=== PATIENT | female | born 1950 | race Caucasian/White ===

== ENCOUNTER 2020-05-21 23:47 | Emergency (ER) | payer OTHER ==
[~2020-05-21] VITALS: Ht 160 cm; Wt 66.7 kg
[2020-05-22] MEDS ORDERED: ONDANSETRON 2MG/ML, 2ML ONE (00:11)
[2020-05-22] MEDS ORDERED: KETOROLAC 30 MG/1 ML ONE (00:11)
--- NOTE | 2020-05-22 00:16 | NUR ---
BIB [facility] FOR C/O RIGHT FLANK PAIN RADIATING INTO RLQ ABD X 2 DAYS; PAIN BECAME WORSE TONIGHT AND PT. REPORTS 1 EPISODE OF EMESIS. IV ESTABLISHED EN ROUTE: 250ML OF NS, 50MCG FENTANLY, AND 4MG ZOFRAN ADMIN BY EMS. PT. REPORTS PAIN MORE TOLERABLE AT 6/10 DOWN FROM 10/10 ON ARRIVAL. HX OF KIDNEY STONES IN THE PAST REQUIRING LITHOTRIPSY FOR 16MM STONE. PT. MEDICATED PER DEC. SPO2 AND B/P MONITORS IN PLACE. AT FOR SUPPORT. DR. FELIX WAS IN TO EVAL PT. AND DISCUSS POC. EKG WAS DONE ON ARRIVAL.
[2020-05-22] MEDS ORDERED: MORPHINE SULFATE 4 MG/ML, 1ML IVPush PRN (00:30)
[2020-05-22] MEDS ORDERED: SODIUM CHLORIDE FLUSH 10ML SYR IVF ONE (00:30)
[2020-05-22] MEDS ORDERED: ONDANSETRON 2MG/ML, 2ML IVPush ONE (00:30)
[2020-05-22] MEDS ORDERED: KETOROLAC 30 MG/1 ML IVPush ONE (00:30)
[2020-05-22 00:33] LABS: BASOPHILS # (AUTO) 0.02 x10^3/uL (0-0.1); BASOPHILS % (AUTO) 0 % (0-1); EOSINOPHILS # (AUTO) 0.14 x10^3/uL (0-0.4); EOSINOPHILS % (AUTO) 2 % (1-7); LYMPHOCYTES # (AUTO) 2.16 x10^3/uL (1-3.4); LYMPHOCYTES % (AUTO) 28 % (22-44); MD NO; MEAN CORPUSCULAR HEMOGLOBIN 31.2 pg (27.0-34.8); MEAN CORPUSCULAR HGB CONC 33.4 g/dL (32.4-35.8); MEAN CORPUSCULAR VOLUME 93.4 fL (80-100); MEAN PLATELET VOLUME 8.2 fL (7.4-10.4); MONOCYTES % (AUTO) 6 % (2-9); NEUTROPHILS # (AUTO) 5.04 x10^3/uL (1.8-6.8); NEUTROPHILS % (AUTO) 64 % (42-75); PLATELET COUNT 269 x10^3/uL (130-400); RED BLOOD COUNT 4.72 x10^6/uL (3.82-5.3); RED CELL DISTRIBUTION WIDTH 13.2 % (9.6-15.2)
[2020-05-22 00:43] LABS: ALANINE AMINOTRANSFERASE 43 U/L (12-78); ALBUMIN 3.6 g/dL (3.4-5.0); ANION GAP 6 mmol/L (5-15); CALCIUM 8.5 mg/dL (8.5-10.1); CHLORIDE 112 mmol/L (98-107); CREATININE 0.72 mg/dL (0.55-1.02)
--- NOTE | 2020-05-22 00:43 | NUR ---
PATIENT TO CT
[2020-05-22 00:45] LABS: ALKALINE PHOSPHATASE 145 U/L (45-117); TOTAL PROTEIN 6.8 g/dL (6.4-8.2)
--- NOTE | 2020-05-22 01:06 | NUR ---
PT. HAS RETURNED FROM CT. PT. REPORTS PAIN DOWN TO 5/10 AND TOLERABLE AT THIS TIME. DENIES ANY NEEDS. PT. AWARE OF NEED FOR UA; WILL PROVIDE WHEN ABLE.
--- NOTE | 2020-05-22 01:27 | NUR ---
PT. AMBULATORY TO BR WITH STEADY GAIT TO PROVIDE CLEAN CATCH UA; INSTRUCTIONS GIVEN PRIOR TO SAMPLE. SPO2 AND B/P RE-CONNECTED. PT. DENIES NEEDS. AWARE THAT MORE PAIN MEDS AVAIL IF NEEDED AND STATES WILL CALL IF PAIN GETS WORSE.
[2020-05-22 01:37] LABS: MICROSCOPIC INDICATED
[2020-05-22] MEDS ORDERED: MORPHINE SULFATE 4 MG/ML, 1ML ONE (01:37)
--- NOTE | 2020-05-22 01:48 | NUR ---
PT. MEDICATED PER MAR FOR INCREASING PAIN. ALL RESULTS BACK AT THIS TIME AND CHART UP FOR RECHECK BY ERP.
[2020-05-22 02:26] VITALS: BP 148/75
== END 2020-05-22 02:39 | disposition home or self-care (01) ==
LOC: ED 05-22 02:10
DX: N13.2 Hydronephrosis with renal and ureteral calculous obstruction (principal); R11.2 Nausea with vomiting, unspecified; R10.9 Unspecified abdominal pain; I44.4 Left anterior fascicular block; Z90.89 Acquired absence of other organs; Z90.710 Acquired absence of both cervix and uterus
CPT/HCPCS: 36415; 74176; 80053; 81001; 85025; 87077; 87086; 93005; 96374; 96375; 99285; J1885; J2270; J2405